=== PATIENT | male | born 1970 | race Caucasian/White ===

== ENCOUNTER 2017-08-12 09:04 | Emergency (ER) | payer OTHER ==
[~2017-08-12] VITALS: Ht 185.4 cm; Wt 103.0 kg
[2017-08-12 10:25] VITALS: BP 128/103
== END 2017-08-12 10:29 | disposition home or self-care (01) ==
LOC: ER 09:05
DX: K40.90 Unilateral inguinal hernia, without obstruction or gangrene, not specified as recurrent (principal); Z88.8 Allergy status to other drugs, medicaments and biological substances
CPT/HCPCS: 99283